=== PATIENT | female | born 1985 | race Caucasian/White ===

== ENCOUNTER 2019-07-26 13:45 | Inpatient (IN) | payer BC ==
[2019-07-26] MEDS ORDERED: Ibuprofen 800 MG TAB PO PRN (13:53)
[2019-07-26] MEDS ORDERED: hydrALAZINE 20 MG/ML VIAL SLOW IVP PRN (13:53)
[2019-07-26] MEDS ORDERED: Promethazine HCl 25 MG/ML VIAL IM PRN ×2 (13:53→21:25)
[2019-07-26] MEDS ORDERED: Butorphanol Tartrate 1 MG/ML VIAL SLOW IVP PRN (13:53)
[2019-07-26] MEDS ORDERED: Ondansetron PF 4 MG/2 ML Vial IVP PRN ×2 (13:53→21:25)
[2019-07-26] MEDS ORDERED: Misoprostol 200 MCG TAB PR PRN (13:53)
[2019-07-26] MEDS ORDERED: Methylergonovine 0.2 MG/ML VIAL IM PRN (13:53)
[2019-07-26] MEDS ORDERED: HYDROcodone/Acetaminophen 5/325 mg Tablet PO PRN ×2 (13:53)
[2019-07-26] MEDS ORDERED: Diphenoxylate HCl/Atropine Tablet PO PRN ×2 (13:53)
[2019-07-26] MEDS ORDERED: Carboprost 250 MCG/ML AMP IM PRN (13:53)
[2019-07-26] MEDS ORDERED: Lidocaine 1% (PF) 30 ML VIAL SC PRN (13:53)
[2019-07-26] MEDS ORDERED: Acetaminophen 500 MG TAB PO PRN (13:53)
[2019-07-26] MEDS ORDERED: Docusate 100 MG CAP PO PRN (13:53)
--- NOTE | 2019-07-26 13:58 | PDOC.LDHP ---
Labor and Delivery H&P HPI: 33 y/o at 38 and 3/7w presents to clinic, and is found to have an ANA of 2.7cm. Sent to L&D for medical induction. Current gestational age (weeks): 38 Due date: 08/06/19 Grav: 4 Para: 5 Current complications: none Abnormal US findings: Yes (oligohydramnios) Current medications: pre-tiffanie vitamins Previous surgical history: cholecystectomy Social history: none - Physical Exam Vital signs reviewed and normal: yes General: NAD Heart: RRR Lungs: CTAB Abdomen: gravid Extremeties: no edema FHT: category 1 - Vaginal Exam cm dilated: 3 - Assessment L&D Assessment: medically indicated induction - Plan Plan: admit to L&D, labor augmentation if indicated
[2019-07-26] MEDS ORDERED: NS w/ Oxytocin 10 units 500 ML IV SCH ×2 (14:00)
[2019-07-26 14:42] VITALS: BMI 39.7
[2019-07-26] MEDS: Lactated Ringer's 1,000 ML IV SCH ×3 (14:56→21:46)
[2019-07-26 14:59] LABS: Hemoglobin 12.5 g/dL (12.0-16.0); Mean Corpuscular HGB CONC 34.8 g/dL (32.0-36.0); Mean Corpuscular Hemoglobin 30.4 pg (27.0-31.0); Mean Corpuscular Volume 87.6 fL (78.0-98.0); Mean Platelet Volume 10.5 fL (7.4-10.4); Platelet Count 188 thou/uL (130-400); RBC Distribution Width 11.9 % (11.5-14.5); Red Blood Cell (RBC) Count 4.12 mill/uL (4.20-5.40); White Blood Cell (WBC) Count 7.2 thou/uL (4.8-10.8)
[2019-07-26 15:37] LABS: HBSAg Index 0.27 S/CO (0-0.99); Hep B Surf Ag Non-Reactive S/CO (NonReactive); Syphilis Antibody Nonreactive (Nonreactive); Syphilis Antibody Index 0.06 S/CO (<1.00 Non-Reactive)
[2019-07-26] MEDS ORDERED: Fentanyl 4 mcg/Bup 0.1% Cadd 100 ML ONE (20:53)
[2019-07-26] MEDS ORDERED: Bupivacaine 0.5% 10 ML VIAL ONE (20:54)
[2019-07-26] MEDS ORDERED: Fentanyl 100 MCG/2 ML VIAL ONE (20:54)
[2019-07-26] MEDS ORDERED: Fentanyl 100 MCG/2 ML VIAL I-THECAL ONE (21:24)
[2019-07-26] MEDS ORDERED: Naloxone HCl 0.4 mg/ml Vial IVP PRN ×2 (21:25)
[2019-07-26] MEDS ORDERED: diphenhydrAMINE 50 MG/ML VIAL IVP PRN (21:25)
[2019-07-26] MEDS ORDERED: EPHEDRINE 25 MG/5 ML SYRINGE SLOW IVP PRN (21:25)
[2019-07-26] MEDS ORDERED: Bupivacaine 0.25% 10 ML VIAL EPIDURAL ONE (21:25)
[2019-07-26] MEDS ORDERED: Lactated Ringer's 500 ML IV PRN (21:25)
[2019-07-26] MEDS ORDERED: Acetaminophen 325 MG TAB PO PRN (21:25)
[2019-07-26] MEDS ORDERED: Fentanyl 4 mcg/Bupivacaine 0.1% Cassette 100 ML EPIDURAL SCH (21:30)
[2019-07-26] MEDS ORDERED: Communication Order-Pharmacy FS SCH (21:30)
[2019-07-26] MEDS ORDERED: Lidocaine 1% (PF) 30 ML VIAL ONE (22:09)
[2019-07-26] MEDS ORDERED: NS / Oxytocin 40 units/1000ml 1,000 ML ONE (22:10)
[2019-07-26] MEDS: NS / Oxytocin 40 units/1000ml 1,000 ML IV PRN (22:47)
[2019-07-27] MEDS ORDERED: Preparation H Ointment 28 GM TUBE PR PRN (00:42)
[2019-07-27] MEDS ORDERED: Lanolin Ointment 7 GM TUBE TOP PRN (00:42)
[2019-07-27] MEDS ORDERED: Promethazine HCl 25 MG/ML VIAL IM PRN (00:42)
[2019-07-27] MEDS ORDERED: HYDROcodone/Acetaminophen 5/325 mg Tablet PO PRN ×2 (00:42)
[2019-07-27] MEDS ORDERED: diphenhydrAMINE 25 MG CAP PO PRN (00:42)
[2019-07-27] MEDS ORDERED: Milk Of Magnesia 30 ML UDCUP PO PRN (00:42)
[2019-07-27] MEDS ORDERED: NS / Oxytocin 40 units/1000ml 1,000 ML IV SCH (00:42)
[2019-07-27] MEDS ORDERED: Benzocaine-Menthol 82.5 ML CAN TOP PRN (00:42)
[2019-07-27] MEDS ORDERED: Methylergonovine 0.2 MG/ML VIAL IM PRN (00:42)
[2019-07-27] MEDS ORDERED: Ondansetron PF 4 MG/2 ML Vial IVP PRN (00:42)
[2019-07-27] MEDS ORDERED: Zolpidem Tartrate 5 MG TAB PO PRN (00:42)
[2019-07-27] MEDS ORDERED: Misoprostol 200 MCG TAB VAG PRN (00:42)
[2019-07-27] MEDS ORDERED: Bisacodyl 10 MG SUPP PR PRN (00:42)
[2019-07-27] MEDS ORDERED: hydrALAZINE 20 MG/ML VIAL SLOW IVP PRN (00:42)
[2019-07-27] MEDS: NS / Oxytocin 40 units/1000ml 1,000 ML IV PRN (01:12)
[2019-07-27] MEDS: Ibuprofen 800 MG TAB PO SCH ×2 (02:25→09:45)
[2019-07-27 06:20] LABS: Hemoglobin 11.6 g/dL (12.0-16.0); Mean Corpuscular HGB CONC 34.7 g/dL (32.0-36.0); Mean Corpuscular Hemoglobin 30.6 pg (27.0-31.0); Mean Corpuscular Volume 88.4 fL (78.0-98.0); Platelet Count 154 thou/uL (130-400); RBC Distribution Width 11.9 % (11.5-14.5); Red Blood Cell (RBC) Count 3.78 mill/uL (4.20-5.40); White Blood Cell (WBC) Count 8.9 thou/uL (4.8-10.8)
[2019-07-27] MEDS ORDERED: Adacel (T-DAP) 0.5 ML SYRINGE IM ONE (09:00)
[2019-07-27] MEDS ORDERED: Varicella virus, LIVE 0.5 ML VIAL SC ONE (09:00)
[2019-07-27] MEDS ORDERED: Measles/Mumps/Rubella 10 MCG/0.5 ML VIAL SC ONE (09:00)
[2019-07-27] MEDS ORDERED: FLU VACC QS2019-20(6MOS UP)/PF 60 MCG/0.5 ML SYRINGE IM ONE (09:00)
[2019-07-27] MEDS: Ferrous Sulfate 325 MG TAB PO SCH (09:31)
[2019-07-27] MEDS: Docusate Calcium (SURFAK) 240 MG CAP PO SCH ×2 (09:45→21:17)
[2019-07-27] MEDS: Prenatal Vitamin 1 TAB PO SCH (09:45)
--- NOTE | 2019-07-27 17:08 | PDOC.PP ---
Post Progress Note Post Day #: 1 PO intake tolerated: yes Flatus: yes Ambulation: yes Vital Signs (12 hours) Temp Pulse Resp BP Pulse Ox 07/27/19 11:15 98.9 F 78 16 115/60 97 07/27/19 07:20 98.3 F 65 12 126/67 98 Weight Weight 239 lb - Physical Examination General: NAD Cardiovascular: no m/r/g, RRR Respiratory: clear to auscultation bilaterally, non-labored breathing Abdominal: + bowel sounds, lochia, no distention Extremities: negative homans (B) Neurological: no gross focal deficits Psychiatric: A&Ox3, normal affect Result Diagrams: 07/27/19 06:14 Additional Labs: Post Labs Blood Type A POSITIVE 07/26/19 18:56 Hep Bs Antigen Non-Reactive S/CO (NonReactive) 07/26/19 14:47
--- NOTE | 2019-07-28 05:11 | DN ---
DATE OF PROCEDURE: 07/26/2019 TIME OF SERVICE: 2242, [employer] Day[employer] Time. PREOPERATIVE DIAGNOSIS: Intrauterine at 38 weeks and 3 days with oligohydramnios and term induction of labor. POSTOPERATIVE DIAGNOSIS: Intrauterine at 38 weeks and 3 days with oligohydramnios and term induction of labor. PROCEDURE: A spontaneous vaginal delivery over intact perineum. FINDINGS: Viable female infant weighing 3223 g or 7 pounds 2 ounces, Apgars 9 and 9. ESTIMATED BLOOD LOSS: 100 mL. COMPLICATIONS: None. PROCEDURE IN DETAIL: The patient presented to [facility] where she was admitted to the labor and delivery service. The patient underwent a normal and uneventful labor with normal cervical dilatation until she was found to be completely dilated. She was then allowed to push and was able to bring the baby down and delivered the baby in a vertex presentation without difficulties. Once the head delivered in occiput anterior position, the shoulders followed spontaneously along with the rest of the baby's body. Once out the baby's mouth and nose were bulb suctioned. The cord was clamped and cut and baby was handed to waiting attendants. Cord blood was collected. Gentle fundal massage was performed and the placenta delivered intact without problems. Hemostasis was assured. Quantitative blood loss was calculated. Inspection of the cervix, vaginal vault, and perineum did not reveal any lacerations needing suturing. Once again, hemostasis was within normal limits and the patient was allowed to recover in the labor and delivery room. Baby went to nursery. Job ID: [id number]
[2019-07-28 08:43] VITALS: BP 129/66; TEMP 98.3
[2019-07-28] MEDS: Ibuprofen 800 MG TAB PO SCH ×2 (08:53→09:16)
[2019-07-28] MEDS: Ferrous Sulfate 325 MG TAB PO SCH (08:53)
[2019-07-28] MEDS: Prenatal Vitamin 1 TAB PO SCH (09:16)
[2019-07-28] MEDS: Docusate Calcium (SURFAK) 240 MG CAP PO SCH (09:16)
== END 2019-07-28 11:45 | disposition home or self-care (01) | DRG 807 ==
LOC: L&D 13:45 → 3SW 07-27 02:00
PROVIDERS: ADMIT Obstetrics & Gynecology; ATTEND Obstetrics & Gynecology
PROC: 10E0XZZ Delivery of Products of Conception, External Approach (ICD-10-PCS; principal; 2019-07-26)
PROC: 10907ZC Drainage of Amniotic Fluid, Therapeutic from Products of Conception, Via Natural or Artificial Opening (ICD-10-PCS; 2019-07-26)
PROC: 3E033VJ Introduction of Other Hormone into Peripheral Vein, Percutaneous Approach (ICD-10-PCS; 2019-07-26)
PROC: 3E0P7VZ Introduction of Hormone into Female Reproductive, Via Natural or Artificial Opening (ICD-10-PCS; 2019-07-26)
DX: O41.03X0 Oligohydramnios, third trimester, not applicable or unspecified (principal); Z37.0 Single live birth; Z3A.38 38 weeks gestation of pregnancy; Z90.49 Acquired absence of other specified parts of digestive tract
CPT/HCPCS: 36415; 51702; 85027; 86780; 86850; 86900; 86901; 87340; J2001; J2590; J3010; J3490